=== PATIENT | male | born 1965 | race American Indian/Alaskan Native ===

== ENCOUNTER 2017-10-13 09:29 | Outpatient (CLI) | payer BC ==
--- NOTE | 2017-10-13 15:49 | XRay Report ---
XRAY LEFT SHOULDER THREE VIEWS: 10/13/17 09:29:00 CLINICAL: Left shoulder pain. FINDINGS: No fracture or dislocation. Normal glenohumeral joint and normal AC joint. A relatively large calcification adjacent to the greater tuberosity of the humerus. The soft tissues are otherwise normal. IMPRESSION: Calcific tendinitis with a relatively large calcification of the rotator cuff. The shoulder is otherwise normal.
== END 2017-10-13 09:30 | disposition home or self-care (01) ==
LOC: SPVIMAG 09:29
PROVIDERS: ATTEND Orthopaedic Surgery
DX: M75.32 Calcific tendinitis of left shoulder (principal)